=== PATIENT | male | born 2000 | race Caucasian/White ===

== ENCOUNTER 2019-08-07 23:58 | Emergency (ER) | payer OTHER ==
[~2019-08-07] VITALS: Ht 167.6 cm; Wt 72.6 kg
[2019-08-08 00:11] VITALS: BP 142/88
[2019-08-08] MEDS ORDERED: ZOFRAN ODT4 MG SUBLING (00:20)
== END 2019-08-08 00:40 | disposition home or self-care (01) ==
LOC: M.ERS 23:58
DX: B34.9 Viral infection, unspecified (principal)

== ENCOUNTER 2020-09-14 09:40 | Emergency (ER) | payer OTHER ==
[~2020-09-14] VITALS: Ht 172.7 cm; Wt 68.0 kg
[~2020-09-14 09:40] MED LIST: ZOFRAN ODT4 MG SUBLING
[2020-09-14 10:15] LABS: ABSOLUTE BASOPHILS 0.1 thou/uL (0.0-0.2); ABSOLUTE EOSINOPHILS 0.1 thou/uL (0.0-0.7); ABSOLUTE LYMPHOCYTES 1.9 thou/uL (0.8-5.3); ABSOLUTE MONOCYTES 0.8 thou/uL (0.0-1.2); HEMATOCRIT 45.7 % (42.0-52.0); HEMOGLOBIN 15.4 gm/dL (14.0-18.0); LYMPHOCYTES 22.1 %; WBC 8.7 thou/uL (4.0-11.0)
[2020-09-14 10:17] LABS: ABSOLUTE NEUTROPHILS 5.8 thou/uL (1.6-8.1); BASOPHILS 0.7 %; EOSINOPHILS 1.3 %; MCH 29.7 pg (26.0-34.0); MCHC 33.7 g/dL (28.0-37.0); MONOCYTES 9.6 %; MPV 9.1 fl. (7.2-11.1); NUCLEATED RBCS 0 /100WBC; PLATELET COUNT* 266 thou/uL (150-400); POLYS 66.3 %; RBC 5.19 mil/uL (4.50-6.00); RDW-CV 12.8 % (10.5-14.5)
[2020-09-14] MEDS ORDERED: BUSPIRONE HCL10 MG PO (10:22)
[2020-09-14] MEDS ORDERED: PROPRANOLOL 20M20 MG PO (10:23)
[2020-09-14 10:33] LABS: ALBUMIN 4.1 g/dL (3.4-5.0); CALCIUM 8.8 mg/dL (8.5-10.1); CREATININE 0.8 mg/dL (0.6-1.3); POTASSIUM 3.6 mmol/L (3.5-5.1); TOTAL BILIRUBIN 0.5 mg/dL (<0.1-1.0); TOTAL PROTEIN 7.7 g/dL (6.4-8.2)
[2020-09-14 10:45] LABS: PROTIME 10.8 Seconds (9.20-11.50)
[2020-09-14] MEDS ORDERED: NAPROSYN500 M1 PO (11:53)
[2020-09-14 11:57] VITALS: BP 105/59
--- NOTE | 2020-09-14 13:57 | EKG ---
[place] [address] ELECTROCARDIOGRAM REPORT Name: LIBIA JAMES Room: [facility]#: [id number] Admission: 09/14/20 Attend Phys: Discharge: 09/14/20 Date of : 89 Date of Service: 09/14/20 0947 Report #: [id number] THIS REPORT FOR: //name// [facility] ED Test Date: 2020-09-14 Test Time: 09:47:14 Pat Name: LIBIA JAMESDepartment: Room: Gender: M [employer]: : 2000 Requested By: Kaitlin Christensen Order Number: [id number] MD: Roly Wiley Measurements Intervals [place] Rate: 74 P: 48 VT: 137 QRS: 25 QRSD: 90 T: 15 QT: 367 QTc: 408 Interpretive Statements Sinus rhythm ST elev, probable normal early repol pattern No previous ECG available for comparison Electronically Signed On 09-14-2020 13:57:15 HOSIERY BAGGER by Roly Wiley [email or web address] <ELECTRONICALLY SIGNED> By: Roly Wiley MD, [facility] 09/14/20 1357 0947 0947 Roly Wiley MD, [facility] /EPI
== END 2020-09-14 11:59 | disposition home or self-care (01) ==
LOC: M.ERS 09:40
PROVIDERS: Personal Emergency Response Attendant
DX: F41.9 Anxiety disorder, unspecified (principal)